=== PATIENT | female | born 1985 | race Caucasian/White ===

== ENCOUNTER 2022-01-18 12:34 | Emergency (ER) | payer SELFPAY ==
[2022-01-18] MEDS ORDERED: Proparacaine 0.5% Opth 15 ML BOT ONE ×2 (12:41→12:43)
[2022-01-18] MEDS ORDERED: Prochlorperazine 10 MG/2 ML VIAL ONE (12:43)
[2022-01-18] MEDS ORDERED: LORazepam 2 MG/ML SYR.(CARPUJECT) ONE (12:47)
[2022-01-18] MEDS ORDERED: FENTANYL 50 MCG/ML 1 ML VIAL ONE (12:55)
== END 2022-01-18 16:58 | disposition home or self-care (01) ==
LOC: ERS 12:34
DX: T26.11XA Burn of cornea and conjunctival sac, right eye, initial encounter (principal); T26.12XA Burn of cornea and conjunctival sac, left eye, initial encounter; I10 Essential (primary) hypertension; F17.210 Nicotine dependence, cigarettes, uncomplicated; X12.XXXA Contact with other hot fluids, initial encounter
CPT/HCPCS: 96374; 96375; J0780; J3010